=== PATIENT | male | born 1960 | race Caucasian/White ===

== ENCOUNTER 2024-09-15 16:11 | Emergency (ER) | payer SELFPAY ==
[~2024-09-15] VITALS: Ht 170.2 cm; Wt 86.0 kg
[2024-09-15 16:25] VITALS: O2SAT 95
[2024-09-15] MEDS: ACETAMINOPHEN 500MG TABLET PO ONE (17:43)
[2024-09-15] MEDS: TETANUS, DIPHTHERIA, PERTUSSIS VAC/PF 0.5ML (>10YR OLD) IM ONE (20:34)
[2024-09-15 20:50] VITALS: BP 124/72; PULSE 80; RESP 18; TEMP 36.6; O2SAT 97
== END 2024-09-15 20:54 | disposition home or self-care (01) ==
LOC: ER 16:11
DX: F10.129 Alcohol abuse with intoxication, unspecified (principal); R55 Syncope and collapse; F17.200 Nicotine dependence, unspecified, uncomplicated; F12.90 Cannabis use, unspecified, uncomplicated; Z79.899 Other long term (current) drug therapy; Y90.9 Presence of alcohol in blood, level not specified
CPT/HCPCS: 73590; 70450; 90715; 90471; 99285; Z7610 ×2; A4606